=== PATIENT | male | born 1985 | race Hispanic/Latino ===

== ENCOUNTER 2021-12-16 04:33 | Inpatient (IN) | payer SELFPAY ==
[2021-12-16] VITALS (7 sets, daily range): BP systolic 124–174; BP diastolic 82–98
[~2021-12-16] VITALS: Ht 167.6 cm; Wt 129.3 kg
[2021-12-16] MEDS ORDERED: NITROGLYCERIN 2% OINT 1 GM PKT TOP ONE ×2 (04:45→06:30)
[2021-12-16] MEDS ORDERED: ACETAMINOPHEN 325 MG TAB PO ONE (04:45)
[2021-12-16] MEDS ORDERED: CEFTRIAXONE 1 GM VIAL IV ONE (05:00)
[2021-12-16] MEDS ORDERED: ACETAMINOPHEN 325 MG TAB ONE (05:14)
[2021-12-16] MEDS ORDERED: NITROGLYCERIN 2% OINT 1 GM PKT ONE (05:14)
[2021-12-16 05:16] LABS: BASOPHILS # (AUTO) 0.1 (0.0-0.1); BASOPHILS % 0.3 % (0.0-1.0); EOSINOPHILS # (AUTO) 0.2 (0.0-0.4); EOSINOPHILS % 1.2 % (0.0-6.0); HEMATOCRIT 48.5 % (38.2-49.6); HEMOGLOBIN 16.1 g/dL (14.0-18.0); LYMPHOCYTES # (AUTO) 3.3 (1.0-3.2); LYMPHOCYTES % 16.9 % (18.0-39.1); MEAN CORPUSCULAR HEMOGLOBIN 27.6 pg (28-32); MEAN CORPUSCULAR HGB CONC 33.2 g/dL (31-35); MONOCYTES % 5.2 % (4.4-11.3); NEUTROPHILS # (AUTO) 14.7 (2.1-6.9); NEUTROPHILS % 75.9 % (38.7-80.0); PLATELET COUNT 323 x10e3/uL (140-360); RED BLOOD COUNT 5.84 x10e6/uL (4.3-5.7); RED CELL DISTRIBUTION WIDTH 13.3 % (11.7-14.4)
[2021-12-16 05:22] LABS: INR 0.93; PROTHROMBIN TIME 13.3 seconds (11.9-14.5)
[2021-12-16 05:23] LABS: PARTIAL THROMBOPLASTIN TIME 26.6 seconds (23.8-35.5)
[2021-12-16 05:34] LABS: CREATINE KINASE MB 1.9 ng/mL (0-5.0)
[2021-12-16 05:35] LABS: ALBUMIN 3.7 g/dL (3.5-5.0); ALBUMIN/GLOBULIN RATIO 0.8 (0.8-2.0); ANION GAP 17.3 mmol/L (8-16); CALCIUM 8.8 mg/dL (8.4-10.2); POTASSIUM 3.3 mmol/L (3.5-5.1)
[2021-12-16] MEDS ORDERED: ASPIRIN 81 MG CHEW TAB PO ONE (06:15)
[2021-12-16] MEDS: ENOXAPARIN SOD INJ 40 MG/0.4 ML SYR SC SCH ×2 (06:30→17:46)
[2021-12-16] MEDS ORDERED: ONDANSETRON HCL INJ 2MG/ML 2ML 2 MG/ML VIAL IV PRN (06:30)
[2021-12-16] MEDS ORDERED: ACETAMINOPHEN 325 MG TAB PO PRN (06:30)
[2021-12-16] MEDS ORDERED: DIPHENHYDRAMINE HCL INJ 50 MG/ML VIAL IV PRN (06:30)
[2021-12-16] MEDS ORDERED: ASPIRIN 81 MG CHEW TAB ONE (06:35)
[2021-12-16] MEDS ORDERED: ENOXAPARIN SODIUM INJ 100 MG/ML SYR SC ONE (06:35)
[2021-12-16] MEDS ORDERED: SODIUM CHLORIDE 0.9% 250ML 250 ML ONE (06:36)
[2021-12-16] MEDS: LOSARTAN POTASSIUM 25 MG TAB PO SCH (08:41)
[2021-12-16] MEDS: FAMOTIDINE 20 MG TAB PO SCH ×2 (08:41→17:11)
[2021-12-16] MEDS ORDERED: CEFTRIAXONE 1 GM VIAL IV SCH (09:00)
[2021-12-16] MEDS ORDERED: ALBUTEROL/IPRATROPIUM 3 ML NEB NEB PRN (13:15)
[2021-12-16] MEDS ORDERED: GUAIFENESIN/DEXTROMETHORPHAN LIQD 5 ML UDC NG PRN (13:15)
[2021-12-16 13:43] LABS: CHOL/HDL RATIO 9.6 (3.9-4.7)
[2021-12-16 14:28] LABS: CREATINE KINASE MB 1.5 ng/mL (0-5.0)
[2021-12-16] MEDS: BENZONATATE 100 MG CAP PO SCH ×2 (15:28→20:56)
[2021-12-16] MEDS: CARVEDILOL 3.125 MG TAB PO SCH (17:11)
[2021-12-16] MEDS: FUROSEMIDE INJ 10 MG/ML 4 ML VIAL IV SCH (17:11)
[2021-12-16] MEDS: ATORVASTATIN 40 MG TAB PO SCH (20:56)
[2021-12-17 04:00] VITALS: BP 124/93
[2021-12-17 08:17] VITALS: BP 129/74
[2021-12-17 08:21] VITALS: BP 129/74
[2021-12-17] MEDS: FUROSEMIDE INJ 10 MG/ML 4 ML VIAL IV SCH ×2 (09:04→16:33)
[2021-12-17] MEDS: FAMOTIDINE 20 MG TAB PO SCH ×2 (09:04→16:33)
[2021-12-17] MEDS: LOSARTAN POTASSIUM 25 MG TAB PO SCH (09:05)
[2021-12-17] MEDS: BENZONATATE 100 MG CAP PO SCH ×3 (09:05→20:57)
[2021-12-17] MEDS: CARVEDILOL 3.125 MG TAB PO SCH ×2 (09:05→16:34)
[2021-12-17 10:26] LABS: BASOPHILS % 0.3 % (0.0-1.0); EOSINOPHILS # (AUTO) 0.2 (0.0-0.4); EOSINOPHILS % 2.4 % (0.0-6.0); HEMOGLOBIN 13.8 g/dL (14.0-18.0); LYMPHOCYTES # (AUTO) 1.6 (1.0-3.2); LYMPHOCYTES % 16.8 % (18.0-39.1); MEAN CORPUSCULAR HEMOGLOBIN 27.5 pg (28-32); MEAN CORPUSCULAR HGB CONC 32.1 g/dL (31-35); MEAN CORPUSCULAR VOLUME 85.7 fL (81-99); MONOCYTES # (AUTO) 0.7 (0.2-0.8); MONOCYTES % 7.6 % (4.4-11.3); NEUTROPHILS # (AUTO) 6.9 (2.1-6.9); NEUTROPHILS % 72.6 % (38.7-80.0); PLATELET COUNT 267 x10e3/uL (140-360); RED BLOOD COUNT 5.02 x10e6/uL (4.3-5.7); RED CELL DISTRIBUTION WIDTH 13.6 % (11.7-14.4)
[2021-12-17 10:52] LABS: CREATINE KINASE MB 1.2 ng/mL (0-5.0)
[2021-12-17 10:55] LABS: ANION GAP 13.7 mmol/L (8-16); CALCIUM 9.1 mg/dL (8.4-10.2); CREATININE, SERUM 0.98 mg/dL (0.72-1.25); POTASSIUM 3.7 mmol/L (3.5-5.1)
[2021-12-17 12:10] VITALS: BP 115/55
[2021-12-17 16:46] VITALS: BP 138/87
[2021-12-17] MEDS ORDERED: FAMOTIDINE20 MG PO (19:37)
[2021-12-17] MEDS ORDERED: COZAAR25 MG PO (19:37)
[2021-12-17] MEDS ORDERED: COREG3.125 MG PO (19:37)
[2021-12-17] MEDS ORDERED: Atorvastatin PO (19:37)
[2021-12-17] MEDS ORDERED: Benzonatate PO (19:37)
[2021-12-17] MEDS ORDERED: ZITHROMAX500 MG PO (19:37)
[2021-12-17] MEDS ORDERED: FUROSEMIDE40 MG PO (19:37)
[2021-12-17] MEDS ORDERED: CEPHALEXIN500 MG PO (19:37)
[2021-12-17] MEDS ORDERED: METFORMIN HCL500 MG PO (19:52)
[2021-12-17] MEDS: ATORVASTATIN 40 MG TAB PO SCH (20:57)
== END 2021-12-17 21:09 | disposition home or self-care (01) | DRG 871 ==
LOC: FSED 04:43 → ERHOLD 06:13 → OBSVTOIN 07:51 → MED/SURG2 07:56
PROVIDERS: ADMIT Internal Medicine; ATTEND Internal Medicine
DX: A41.9 Sepsis, unspecified organism (principal); I50.21 Acute systolic (congestive) heart failure; J96.01 Acute respiratory failure with hypoxia; J18.9 Pneumonia, unspecified organism; Z68.42 Body mass index [BMI] 45.0-49.9, adult; E87.2 Acidosis; I11.0 Hypertensive heart disease with heart failure; R65.20 Severe sepsis without septic shock; E78.5 Hyperlipidemia, unspecified; Z28.311 Partially vaccinated for COVID-19; E66.01 Morbid (severe) obesity due to excess calories; E87.6 Hypokalemia; E11.9 Type 2 diabetes mellitus without complications; Z20.822 Contact with and (suspected) exposure to COVID-19; I16.0 Hypertensive urgency
CPT/HCPCS: 36415; 71046; 80048; 80053; 80061; 82550; 82553; 83036; 83605; 83880; 84484; 85025; 85610; 85730; 87040; 93005; 93306; 94760; 94799; 96372; 99284; J0456; J0696; J1650; J1940; J7050; U0002

== ENCOUNTER → 2022-02-12 | Outpatient (CLI) | payer SELFPAY ==
[~2022-02-12] MED LIST: Atorvastatin PO; Benzonatate PO; CEPHALEXIN500 MG PO; COREG3.125 MG PO; COZAAR25 MG PO; FAMOTIDINE20 MG PO; FUROSEMIDE40 MG PO; IOPAMIDOL 370 MG/ML 100 ML INFUS..BTL INJ ONE; METFORMIN HCL500 MG PO; METOPROLOL TARTRATE 25 MG TAB ONE; METOPROLOL TARTRATE INJ 1 MG/ML VIAL ONE; NITROGLYCERIN 0.4 MG SUBL ONE; SODIUM CHLORIDE 0.9% 100 ML ONE; ZITHROMAX500 MG PO
[2022-02-12 08:44] LABS: CREATININE, SERUM 0.76 mg/dL (0.72-1.25)
== END ==
LOC: CT 07:34
PROVIDERS: ATTEND Internal Medicine
DX: I50.9 Heart failure, unspecified (principal)
CPT/HCPCS: 36415; 75574; 82565; 84520; J7050; Q9967

== ENCOUNTER 2024-10-23 14:50 | Emergency (ER) | payer SELFPAY ==
[~2024-10-23] VITALS: Ht 172.7 cm; Wt 133.9 kg
[~2024-10-23 14:50] MED LIST changes: -IOPAMIDOL 370 MG/ML 100 ML INFUS..BTL INJ ONE; -METOPROLOL TARTRATE 25 MG TAB ONE; -METOPROLOL TARTRATE INJ 1 MG/ML VIAL ONE; -NITROGLYCERIN 0.4 MG SUBL ONE; -SODIUM CHLORIDE 0.9% 100 ML ONE
[2024-10-23] MEDS ORDERED: SPIRONOLACTONE25 MG PO (15:03)
[2024-10-23] MEDS ORDERED: CARVEDILOL12.5 MG PO ×2 (15:03→15:19)
[2024-10-23] MEDS ORDERED: ALDACTONE25 MG PO ×2 (15:19→15:21)
[2024-10-23] MEDS ORDERED: LOSARTAN POTAS100 MG PO (15:19)
[2024-10-23] MEDS ORDERED: FUROSEMIDE40 MG PO (15:19)
[2024-10-23 15:36] VITALS: PULSE 90; RESP 18; TEMP 97.6; O2SAT 96
== END 2024-10-23 15:39 | disposition home or self-care (01) ==
LOC: FSED 14:54
DX: R07.89 Other chest pain (principal); I10 Essential (primary) hypertension; R10.823 Right lower quadrant rebound abdominal tenderness; E78.5 Hyperlipidemia, unspecified; I25.10 Atherosclerotic heart disease of native coronary artery without angina pectoris; R73.03 Prediabetes; E66.9 Obesity, unspecified
CPT/HCPCS: 71046; 99283